=== PATIENT | male | born 1970 | race Caucasian/White ===

== ENCOUNTER 2023-01-23 17:32 | Emergency (ER) | payer BC ==
[~2023-01-23] VITALS: Ht 177.8 cm; Wt 77.1 kg
[2023-01-23 18:06] LABS: BASOPHILS % 0.6 % (0.0-1.0); EOSINOPHILS # (AUTO) 0.1 (0.0-0.4); HEMATOCRIT 41.8 % (38.2-49.6); HEMOGLOBIN 13.1 g/dL (14.0-18.0); LYMPHOCYTES # (AUTO) 1.6 (1.0-3.2); LYMPHOCYTES % 22.9 % (18.0-39.1); MEAN CORPUSCULAR HEMOGLOBIN 24.1 pg (28-32); MEAN CORPUSCULAR HGB CONC 31.3 g/dL (31-35); MEAN CORPUSCULAR VOLUME 76.8 fL (81-99); MONOCYTES # (AUTO) 0.5 (0.2-0.8); MONOCYTES % 7.2 % (4.4-11.3); NEUTROPHILS # (AUTO) 4.7 (2.1-6.9); NEUTROPHILS % 68.2 % (38.7-80.0); PLATELET COUNT 239 x10e3/uL (140-360); RED BLOOD COUNT 5.44 x10e6/uL (4.3-5.7); RED CELL DISTRIBUTION WIDTH 14.3 % (11.7-14.4)
[2023-01-23 18:18] LABS: INR 0.91; PROTHROMBIN TIME 12.8 seconds (11.9-14.5)
[2023-01-23 18:19] LABS: PARTIAL THROMBOPLASTIN TIME 27.5 seconds (23.8-35.5)
[2023-01-23 18:23] LABS: ALANINE AMINOTRANSFERASE 23 IU/L (0-55); ALBUMIN 3.9 g/dL (3.5-5.0); ALBUMIN/GLOBULIN RATIO 1.1 (0.8-2.0); ALKALINE PHOSPHATASE 136 IU/L (40-150); ANION GAP 16.7 mmol/L (8-16); BLOOD UREA NITROGEN 15 mg/dL (7-26); BUN/CREATININE RATIO 15 (6-25); CALCIUM 9.6 mg/dL (8.4-10.2); CARBON DIOXIDE 24 mmol/L (22-29); CHLORIDE 103 mmol/L (98-107); CREATINE KINASE 41 IU/L (30-200); CREATININE, SERUM 0.99 mg/dL (0.72-1.25); GLUCOSE 373 mg/dL (74-118); POTASSIUM 3.7 mmol/L (3.5-5.1); SODIUM 140 mmol/L (136-145)
[2023-01-23] MEDS ORDERED: LABETALOL HCL 5 MG/ML 20ML VIAL IV STA (18:23)
[2023-01-23 18:31] LABS: CLARITY,URINE CLEAR (CLEAR); COLOR,URINE YELLOW (YELLOW); KETONES,URINE NEGATIVE (NEGATIVE); LEUKOCYTE ESTERASE ,URINE NEGATIVE (NEGATIVE); NITRITE,URINE NEGATIVE (NEGATIVE); PROTEIN,URINE DIPSTICK NEGATIVE (NEGATIVE)
[2023-01-23 18:32] LABS: SALICYLATE < 5.0 mg/dL (0-30)
[2023-01-23 18:32] LABS: AMPHETAMINES SCREEN,URINE NEGATIVE (NEGATIVE); BACTERIA,URINE FEW /HPF; BENZODIAZEPINES SCREEN,URINE NEGATIVE (NEGATIVE); EPITHELIAL CELLS,URINE FEW /LPF; PHENCYCLIDINE SCREEN,URINE NEGATIVE (NEGATIVE); RBC,URINE 0-5 /HPF (0-5); URINE UROBILINOGEN 0.2 mg/dL (0.2 - 1); WBC,URINE (MAN) 0-5 /HPF (0-5)
[2023-01-23] MEDS ORDERED: IOPAMIDOL 370 MG/ML 100 ML INFUS..BTL INJ ONE (18:37)
[2023-01-23] MEDS ORDERED: ASPIRIN 81 MG CHEW TAB PO ONE (19:00)
[2023-01-23 20:06] VITALS: BP 174/94
== END 2023-01-23 20:05 | disposition other institution (70) ==
LOC: ER 18:04
DX: R41.82 Altered mental status, unspecified (principal); I63.89 Other cerebral infarction; E11.65 Type 2 diabetes mellitus with hyperglycemia; I10 Essential (primary) hypertension; R94.31 Abnormal electrocardiogram [ECG] [EKG]
CPT/HCPCS: 0223U; 36415; 70450; 70496; 70498; 71045; 80053; 80307; 80320; 80329 ×2; 81001; 82550; 82553; 82948; 84484; 85025; 85610; 85730; 93005; 99284; Q9967

== ENCOUNTER 2023-02-21 10:42 | Outpatient (RCR) | payer BC | END 2023-03-02 | LOC: PT 10:42 | PROVIDERS: ATTEND Internal Medicine | DX: I63.533 Cerebral infarction due to unspecified occlusion or stenosis of bilateral posterior cerebral arteries (principal) | CPT/HCPCS: 92523 ==

== ENCOUNTER → 2023-04-01 | Outpatient (RCR) | payer BC | LOC: PT 03-04 08:14 → OT 03-17 10:39 → PT 03-22 10:00 → OT 03-24 10:28 → PT 03-29 10:00 → OT 10:57 | PROVIDERS: ATTEND Psychiatry & Neurology Clinical Neurophysiology | DX: I63.533 Cerebral infarction due to unspecified occlusion or stenosis of bilateral posterior cerebral arteries (principal) ==

== ENCOUNTER 2023-07-13 10:58 | Outpatient (RCR) | payer BC | END 2023-08-02 | LOC: PT 10:58 | PROVIDERS: ATTEND Psychiatry & Neurology Clinical Neurophysiology | DX: I63.533 Cerebral infarction due to unspecified occlusion or stenosis of bilateral posterior cerebral arteries (principal) ==

== ENCOUNTER 2023-08-10 12:54 | Outpatient (RCR) | payer BC | END 2023-09-01 | LOC: PT 12:54 | PROVIDERS: ATTEND Psychiatry & Neurology Clinical Neurophysiology | DX: I63.533 Cerebral infarction due to unspecified occlusion or stenosis of bilateral posterior cerebral arteries (principal) ==